=== PATIENT | male | born 1960 | race African-American/Black ===

== ENCOUNTER 2017-07-27 17:38 | Inpatient (IN) | payer OTHER ==
[~2017-07-27] VITALS: Ht 185.4 cm; Wt 83.0 kg
[~2017-07-27 17:38] MED LIST: ASPI-1158 PO; FOLI-43 PO; FURO20TA4 PO; LISI-604 PO; TAMS0.4C31 PO; TRAM50TA3 PO
[2017-07-27] MEDS ORDERED: SODIUM CHLORIDE 0.9% 1,000 ML IV ONE (18:08)
[2017-07-27] MEDS ORDERED: MORPHINE SULFATE 4 MG/ML CPJ (NOT FOR IM USE) IV STA (18:08)
[2017-07-27] MEDS ORDERED: ONDANSETRON HCL 4MG/2ML VIAL IV STA (18:08)
[2017-07-27] MEDS ORDERED: FAMOTIDINE 20MG TABLET PO STA (18:10)
[2017-07-27] MEDS ORDERED: MAGNESIUM/ALUMINUM HYDROXIDE/SIMETHICONE 30ML UDC PO STA (18:10)
[2017-07-27] MEDS ORDERED: NITROGLYCERIN 0.4MG TABLET SL SL PRN (18:15)
[2017-07-27] MEDS ORDERED: CLONIDINE 0.2MG TABLET PO ONE ×2 (18:15→23:15)
[2017-07-27] MEDS ORDERED: MORPHINE SULFATE 10 MG/ML CPJ IV NR (19:30)
[2017-07-27] MEDS ORDERED: HYDROMORPHONE HCL/PF 2MG/ML CPJ IV ONE (19:30)
[2017-07-27 19:35] LABS: BASOPHILS % 1.3 % (0.0-2.0); EOSINOPHILS % 0.8 % (0.0-5.0); HEMATOCRIT. 39.4 % (42.0-52.0); HEMOGLOBIN. 13.7 g/dL (14.0-18.0); LYMPHOCYTES % 26.9 % (20.0-50.0); MEAN CORPUSCULAR HEMOGLOBIN 34.9 pg (28.0-32.0); MEAN CORPUSCULAR VOLUME 100.5 fL (80.0-94.0); MEAN PLATELET VOLUME 6.8 fl (7.4-10.4); MONOCYTES % 10.1 % (2.0-8.0); NEUTROPHILS % 60.9 % (40.0-76.0); PLATELET 238 x1000/uL (130-400); RED BLOOD CELL COUNT 3.92 mill/uL (4.7-6.1); RED CELL DISTRIBUTION WIDTH 15.5 % (11.6-14.6)
[2017-07-27 19:42] LABS: PARTIAL THROMBOPLASTIN TIME 25.7 sec (23.4-31.0); PROTHROMBIN TIME 10.6 sec (9.4-11.6)
[2017-07-27 19:51] LABS: CARBON DIOXIDE 27 mEq/L (21-32); CHLORIDE 102 mEq/L (98-107); TROPONIN I 0.03 ng/mL (0.00-0.04)
[2017-07-27] MEDS ORDERED: ASPIRIN 325MG EC TABLET PO ONE (21:30)
[2017-07-27] MEDS ORDERED: POTASSIUM CHLORIDE 20MEQ TABLET SR PO ONE (21:30)
[2017-07-27 23:30] VITALS: BP 160/103
[2017-07-28 00:01] VITALS: BP 160/103
[2017-07-28] MEDS ORDERED: HYDROCODONE/ACETAMINOPHEN 5/325MG TABLET PO PRN (01:45)
[2017-07-28] MEDS ORDERED: TEMAZEPAM 15MG CAPSULE PO PRN (01:45)
[2017-07-28] MEDS ORDERED: ONDANSETRON HCL 4MG/2ML VIAL IV PRN (01:45)
[2017-07-28] MEDS ORDERED: CLONIDINE 0.1MG TABLET PO PRN (02:00)
[2017-07-28] MEDS ORDERED: TRAMADOL 50MG TABLET PO PRN (02:00)
[2017-07-28] MEDS: SODIUM CHLORIDE 0.9% 1,000 ML IV SCH (02:45)
[2017-07-28] MEDS: LISINOPRIL 20MG TABLET PO SCH ×4 (02:45→20:06)
[2017-07-28 04:00] VITALS: BP 141/95
[2017-07-28 07:01] LABS: BASOPHILS % 0.8 % (0.0-2.0); EOSINOPHILS % 0.9 % (0.0-5.0); HEMATOCRIT. 38.8 % (42.0-52.0); HEMOGLOBIN. 13.2 g/dL (14.0-18.0); LYMPHOCYTES % 30.8 % (20.0-50.0); MEAN CORPUSCULAR HEMOGLOBIN 34.7 pg (28.0-32.0); MEAN CORPUSCULAR VOLUME 101.8 fL (80.0-94.0); MEAN PLATELET VOLUME 7.4 fl (7.4-10.4); MONOCYTES % 10.9 % (2.0-8.0); NEUTROPHILS % 56.6 % (40.0-76.0); PLATELET 239 x1000/uL (130-400); RED BLOOD CELL COUNT 3.81 mill/uL (4.7-6.1); RED CELL DISTRIBUTION WIDTH 15.4 % (11.6-14.6)
[2017-07-28 07:37] LABS: CARBON DIOXIDE 30 mEq/L (21-32); CHLORIDE 100 mEq/L (98-107); CREATINE KINASE 221 IU/L (39-308); HDL CHOLESTEROL 83 mg/dL (40-59)
[2017-07-28 07:44] LABS: CREATINE KINASE MB FRACTION 1.8 ng/mL (0.5-3.6); LDL CHOLESTEROL 129 mg/dL (5-100); TROPONIN I 0.02 ng/mL (0.00-0.04)
[2017-07-28 08:00] VITALS: BP 155/93
[2017-07-28] MEDS: ASPIRIN 81MG EC TABLET PO SCH (08:56)
[2017-07-28] MEDS: FOLIC ACID 1MG TABLET PO SCH (08:56)
[2017-07-28] MEDS: FUROSEMIDE 20MG TABLET PO SCH (08:56)
[2017-07-28] MEDS ORDERED: INFLUENZA VIRUS VACCINE 0.5ML SYR IM ONE (10:00)
[2017-07-28 12:00] VITALS: BP 157/96
[2017-07-28] MEDS: OMEPRAZOLE 20MG CAPSULE EXTENDED RELEASE PO SCH (13:58)
[2017-07-28] MEDS: CARVEDILOL 6.25 MG TABLET PO SCH ×2 (13:59→20:07)
[2017-07-28] MEDS: AMLODIPINE 5MG TABLET PO SCH ×2 (13:59→20:08)
[2017-07-28 16:00] VITALS: BP 145/91
[2017-07-28 20:00] VITALS: BP 148/99
[2017-07-28] MEDS ORDERED: ATORVASTATIN CALCIUM 20MG TABLET PO SCH (21:00)
[2017-07-29] VITALS: BP 132/93
[2017-07-29] MEDS: SODIUM CHLORIDE 0.9% 1,000 ML IV SCH ×2 (03:43→04:04)
[2017-07-29 03:45] LABS: CLARITY URINE CLEAR (CLEAR); COLOR URINE YELLOW (YELLOW); GLUCOSE URINE NEGATIVE (NEGATIVE); KETONES URINE 1+ (NEGATIVE); LEUKOCYTE ESTERASE URINE NEGATIVE (NEGATIVE); NITRITE URINE NEGATIVE (NEGATIVE); OCCULT BLOOD URINE NEGATIVE (NEGATIVE); PROTEIN URINE NEGATIVE (NEGATIVE); SPECIFIC GRAVITY URINE 1.015 (1.005-1.030)
[2017-07-29 04:00] VITALS: BP 139/98
[2017-07-29 04:19] LABS: *AMPHETAMINES SCREEN URINE NEGATIVE (NEGATIVE); *BARBITURATES SCREEN URINE NEGATIVE (NEGATIVE); *BENZODIAZEPINES SCREEN URINE NEGATIVE (NEGATIVE); *COCAINE SCREEN URINE NEGATIVE (NEGATIVE); CANNABINOID URINE SCREEN PRESUMTIVE POSITIVE (NEGATIVE); METHADONE URINE SCREEN NEGATIVE (NEGATIVE); OPIATES URINE SCREEN PRESUMTIVE POSITIVE (NEGATIVE); PHENCYCLIDINE URINE SCREEN NEGATIVE (NEGATIVE)
[2017-07-29] MEDS: OMEPRAZOLE 20MG CAPSULE EXTENDED RELEASE PO SCH (06:10)
[2017-07-29] MEDS ORDERED: REGADENOSON 0.4 MG/5 ML IV SCH (07:45)
[2017-07-29] MEDS: FOLIC ACID 1MG TABLET PO SCH (08:25)
[2017-07-29] MEDS: CARVEDILOL 6.25 MG TABLET PO SCH (08:26)
[2017-07-29] MEDS: LISINOPRIL 20MG TABLET PO SCH ×2 (08:26→08:56)
[2017-07-29] MEDS: FUROSEMIDE 20MG TABLET PO SCH (08:26)
[2017-07-29] MEDS: AMLODIPINE 5MG TABLET PO SCH (08:27)
[2017-07-29] MEDS: ASPIRIN 81MG EC TABLET PO SCH (08:27)
[2017-07-29] MEDS ORDERED: REGADENOSON 0.4 MG/5 ML IV ONE (10:16)
[2017-07-29 13:53] VITALS: BP 132/90
== END 2017-07-29 17:00 | disposition home or self-care (01) | DRG 203 ==
LOC: ER 17:47 → 8WST 21:53 → EDBEDREQ 21:56 → EDBEDREQTM 21:56 → ENRESERV 22:08 → 8WST 07-28 00:10
PROVIDERS: ADMIT Internal Medicine; ATTEND Internal Medicine
DX: M94.0 Chondrocostal junction syndrome [Tietze] (principal); I42.9 Cardiomyopathy, unspecified; I11.0 Hypertensive heart disease with heart failure; I50.9 Heart failure, unspecified; K29.20 Alcoholic gastritis without bleeding; R07.89 Other chest pain; F10.288 Alcohol dependence with other alcohol-induced disorder; E87.6 Hypokalemia; D64.9 Anemia, unspecified; E78.5 Hyperlipidemia, unspecified; F17.210 Nicotine dependence, cigarettes, uncomplicated; R74.0 Nonspecific elevation of levels of transaminase and lactic acid dehydrogenase [LDH]; Z79.82 Long term (current) use of aspirin; Z79.899 Other long term (current) drug therapy; Z82.49 Family history of ischemic heart disease and other diseases of the circulatory system; Z90.49 Acquired absence of other specified parts of digestive tract
CPT/HCPCS: 36415; 70450; 71010; 74176; 78452; 80048; 80053; 80061; 80305; 81003; 82550; 82553; 83036; 83690; 84443; 84484; 85025; 85610; 85730; 86850; 86900; 90686; 93005; 93017; 96361; 96374; 96375; 99285; A9500; J1170; J2270; J2405; J2785; J7030

== ENCOUNTER 2018-11-07 02:58 | Inpatient (IN) | payer OTHER ==
[~2018-11-07] VITALS: Ht 185.4 cm; Wt 80.7 kg
[2018-11-07] MEDS ORDERED: FUROSEMIDE 40MG/4ML VIAL IV ONE (03:15)
[2018-11-07] MEDS ORDERED: ASPIRIN 81MG TABLET PO ONE (03:15)
[2018-11-07 03:48] LABS: BASOPHILS % 0.9 % (0.0-2.0); EOSINOPHILS % 2.2 % (0.0-5.0); HEMATOCRIT. 46.8 % (42.0-52.0); HEMOGLOBIN. 15.6 g/dL (14.0-18.0); LYMPHOCYTES % 42.4 % (20.0-50.0); MEAN CORPUSCULAR HEMOGLOBIN 33.5 pg (28.0-32.0); MEAN CORPUSCULAR VOLUME 100.6 fL (80.0-94.0); MONOCYTES % 7.3 % (2.0-8.0); NEUTROPHILS % 47.2 % (40.0-76.0); PLATELET 354 x1000/uL (130-400); RED BLOOD CELL COUNT 4.65 mill/uL (4.7-6.1); RED CELL DISTRIBUTION WIDTH 14.8 % (11.6-14.6)
[2018-11-07 03:51] LABS: CHLORIDE 111 mEq/L (98-107)
[2018-11-07 03:54] LABS: PARTIAL THROMBOPLASTIN TIME 29.9 sec (23.4-31.0); PROTHROMBIN TIME 9.7 sec (9.1-11.1)
[2018-11-07 03:55] LABS: ETHANOL BLOOD 185 mg/dL
[2018-11-07] MEDS ORDERED: LEVOFLOXACIN 500MG PREMIX 100 ML IV ONE (04:00)
[2018-11-07] MEDS ORDERED: ACETAMINOPHEN 325MG TABLET PO ONE (04:30)
[2018-11-07 06:20] LABS: *AMPHETAMINES SCREEN URINE NEGATIVE (NEGATIVE); *BARBITURATES SCREEN URINE NEGATIVE (NEGATIVE); *BENZODIAZEPINES SCREEN URINE NEGATIVE (NEGATIVE); *COCAINE SCREEN URINE NEGATIVE (NEGATIVE); METHADONE URINE SCREEN NEGATIVE (NEGATIVE); OPIATES URINE SCREEN NEGATIVE (NEGATIVE)
[2018-11-07 06:21] LABS: CANNABINOID URINE SCREEN NEGATIVE (NEGATIVE); PHENCYCLIDINE URINE SCREEN NEGATIVE (NEGATIVE)
[2018-11-07] MEDS ORDERED: ALPRAZOLAM 0.5 MG TABLET PO NR (11:45)
[2018-11-07 12:35] LABS: BASOPHILS % 1.2 % (0.0-2.0); EOSINOPHILS % 1.1 % (0.0-5.0); HEMATOCRIT. 43.7 % (42.0-52.0); HEMOGLOBIN. 14.6 g/dL (14.0-18.0); LYMPHOCYTES % 27.4 % (20.0-50.0); MEAN CORPUSCULAR HEMOGLOBIN 33.4 pg (28.0-32.0); MEAN CORPUSCULAR VOLUME 100.2 fL (80.0-94.0); MONOCYTES % 8.1 % (2.0-8.0); NEUTROPHILS % 62.2 % (40.0-76.0); PLATELET 335 x1000/uL (130-400); RED BLOOD CELL COUNT 4.36 mill/uL (4.7-6.1); RED CELL DISTRIBUTION WIDTH 14.1 % (11.6-14.6)
[2018-11-07 12:37] LABS: CHLORIDE 104 mEq/L (98-107)
[2018-11-07 12:45] LABS: CREATINE KINASE 125 IU/L (39-308)
[2018-11-07 12:47] LABS: CREATINE KINASE MB FRACTION 2.3 ng/mL (0.5-3.6)
[2018-11-07] MEDS: LOSARTAN POTASSIUM 50 MG TABLET PO SCH (18:01)
[2018-11-07] MEDS: FUROSEMIDE 40MG/4ML VIAL IVP SCH (18:01)
[2018-11-07 19:14] VITALS: BP 164/118
[2018-11-07] MEDS ORDERED: INFLUENZA VIRUS VACCINE(AFLURIA) 0.5ML SYR IM ONE (19:15)
[2018-11-07 20:00] VITALS: BP 159/110
[2018-11-07] MEDS: AMLODIPINE 5MG TABLET PO SCH (21:21)
[2018-11-07] MEDS: ZOLPIDEM TARTRATE 5MG TABLET PO PRN (21:21)
[2018-11-07] MEDS: CARVEDILOL 3.125 MG TABLET PO SCH (21:21)
[2018-11-07] MEDS ORDERED: AMLO10TA80 PO (22:19)
[2018-11-07] MEDS ORDERED: THIAMINE HCL 100MG TABLET PO NR (23:15)
[2018-11-08] VITALS: BP 148/104
[2018-11-08] MEDS ORDERED: INFLUENZA VIRUS VACCINE(AFLURIA) 0.5ML SYR IM ONE
[2018-11-08] MEDS ORDERED: FOLIC ACID 1 MG, MVI, ADULT NO.1 10 ML in DEXTROSE 5% WATER 1,000 ML IV ONE ×3
[2018-11-08 04:00] VITALS: BP 154/106
[2018-11-08] MEDS: FUROSEMIDE 40MG/4ML VIAL IVP SCH ×2 (06:30→18:13)
[2018-11-08 07:45] LABS: BASOPHILS % 1.2 % (0.0-2.0); EOSINOPHILS % 1.7 % (0.0-5.0); HEMOGLOBIN. 14.6 g/dL (14.0-18.0); LYMPHOCYTES % 31.1 % (20.0-50.0); MEAN CORPUSCULAR HEMOGLOBIN 33.7 pg (28.0-32.0); MEAN CORPUSCULAR VOLUME 99.1 fL (80.0-94.0); MEAN PLATELET VOLUME 7.5 fl (7.4-10.4); MONOCYTES % 10.3 % (2.0-8.0); NEUTROPHILS % 55.7 % (40.0-76.0); PLATELET 329 x1000/uL (130-400); RED BLOOD CELL COUNT 4.33 mill/uL (4.7-6.1); RED CELL DISTRIBUTION WIDTH 14.1 % (11.6-14.6)
[2018-11-08 07:59] LABS: CHLORIDE 100 mEq/L (98-107)
[2018-11-08 08:00] VITALS: BP 160/121
[2018-11-08] MEDS: CARVEDILOL 3.125 MG TABLET PO SCH (08:56)
[2018-11-08] MEDS: LOSARTAN POTASSIUM 50 MG TABLET PO SCH ×2 (08:56→18:14)
[2018-11-08] MEDS: AMLODIPINE 5MG TABLET PO SCH ×2 (08:56→21:36)
[2018-11-08] MEDS ORDERED: PNEUMOCOCCAL 23-VAL P-SAC VAC 0.5 ML IM ONE (10:00)
[2018-11-08 12:00] VITALS: BP 153/111
[2018-11-08] MEDS: ISOSORB DINIT/HYDRALAZINE HCL 20/37.5MG TABLET PO SCH ×2 (14:40→21:35)
[2018-11-08 16:00] VITALS: BP 120/89
[2018-11-08 20:00] VITALS: BP 128/98
[2018-11-08] MEDS ORDERED: POTASSIUM CHLORIDE 20MEQ TABLET SR PO NR (21:15)
[2018-11-08] MEDS: ZOLPIDEM TARTRATE 5MG TABLET PO PRN (21:36)
[2018-11-08] MEDS: CARVEDILOL 6.25 MG TABLET PO SCH (21:36)
[2018-11-08] MEDS: HYDROCODONE/ACETAMINOPHEN 5/325MG TABLET PO PRN (23:11)
[2018-11-09] VITALS (7 sets, daily range): BP systolic 73–141; BP diastolic 43–91
[2018-11-09] MEDS: ISOSORB DINIT/HYDRALAZINE HCL 20/37.5MG TABLET PO SCH (06:00)
[2018-11-09 06:22] LABS: BASOPHILS % 0.7 % (0.0-2.0); EOSINOPHILS % 0.7 % (0.0-5.0); HEMATOCRIT. 41.7 % (42.0-52.0); HEMOGLOBIN. 14.3 g/dL (14.0-18.0); LYMPHOCYTES % 21.5 % (20.0-50.0); MEAN CORPUSCULAR VOLUME 99.1 fL (80.0-94.0); MEAN PLATELET VOLUME 7.3 fl (7.4-10.4); MONOCYTES % 9.8 % (2.0-8.0); NEUTROPHILS % 67.3 % (40.0-76.0); PLATELET 322 x1000/uL (130-400); RED CELL DISTRIBUTION WIDTH 13.9 % (11.6-14.6)
[2018-11-09] MEDS: FUROSEMIDE 40MG/4ML VIAL IVP SCH (07:15)
[2018-11-09] MEDS: AMLODIPINE 5MG TABLET PO SCH ×3 (09:00→20:11)
[2018-11-09] MEDS: LOSARTAN POTASSIUM 50 MG TABLET PO SCH (09:00)
[2018-11-09] MEDS: CARVEDILOL 6.25 MG TABLET PO SCH (09:00)
[2018-11-09] MEDS: POTASSIUM CHLORIDE 10MEQ TABLET SR PO SCH ×2 (09:55→17:50)
[2018-11-09] MEDS ORDERED: SODIUM CHLORIDE 0.9% 1,000 ML IV ONE (15:30)
[2018-11-09] MEDS: LOSARTAN POTASSIUM 25 MG TABLET PO SCH (17:50)
[2018-11-09] MEDS: CARVEDILOL 3.125 MG TABLET PO SCH (20:11)
[2018-11-09] MEDS: ZOLPIDEM TARTRATE 5MG TABLET PO PRN (22:20)
[2018-11-10] VITALS: BP 116/84
[2018-11-10 04:00] VITALS: BP 125/88
[2018-11-10] MEDS: HYDROCODONE/ACETAMINOPHEN 5/325MG TABLET PO PRN (06:41)
[2018-11-10 06:42] LABS: BASOPHILS % 0.9 % (0.0-2.0); EOSINOPHILS % 1.7 % (0.0-5.0); HEMATOCRIT. 43.2 % (42.0-52.0); HEMOGLOBIN. 14.5 g/dL (14.0-18.0); LYMPHOCYTES % 32.7 % (20.0-50.0); MEAN CORPUSCULAR HEMOGLOBIN 33.6 pg (28.0-32.0); MEAN CORPUSCULAR VOLUME 99.8 fL (80.0-94.0); MEAN PLATELET VOLUME 7.4 fl (7.4-10.4); MONOCYTES % 12.4 % (2.0-8.0); NEUTROPHILS % 52.3 % (40.0-76.0); PLATELET 313 x1000/uL (130-400); RED BLOOD CELL COUNT 4.33 mill/uL (4.7-6.1); RED CELL DISTRIBUTION WIDTH 13.7 % (11.6-14.6)
[2018-11-10 07:56] LABS: CHLORIDE 102 mEq/L (98-107)
[2018-11-10 08:05] VITALS: BP 125/84
[2018-11-10] MEDS: CARVEDILOL 3.125 MG TABLET PO SCH (09:02)
[2018-11-10] MEDS: LOSARTAN POTASSIUM 25 MG TABLET PO SCH (09:02)
[2018-11-10] MEDS: POTASSIUM CHLORIDE 10MEQ TABLET SR PO SCH (09:03)
[2018-11-10] MEDS: AMLODIPINE 5MG TABLET PO SCH (09:03)
[2018-11-10 12:00] VITALS: BP 128/93
[2018-11-10] MEDS ORDERED: CARV3.1242 MT (13:58)
[2018-11-10] MEDS ORDERED: LOSA25TA3 PO (13:58)
[2018-11-10] MEDS ORDERED: POTA10CA42 PO (13:59)
[2018-11-10] MEDS ORDERED: FURO-151 PO (13:59)
[2018-11-10] MEDS ORDERED: FOLI-43 MT (14:00)
[2018-11-10] MEDS ORDERED: THIA100T13 MT (14:00)
[2018-11-10 14:02] VITALS: BP 128/93
[2018-11-10 16:00] VITALS: BP 114/63
== END 2018-11-10 14:45 | disposition home or self-care (01) | DRG 203 ==
LOC: ER 02:58 → 5WST 04:33 → EDBEDREQ 04:35 → EDBEDREQTM 04:35 → ENRESERV 15:20
PROVIDERS: ADMIT Internal Medicine; ATTEND Internal Medicine
DX: M94.0 Chondrocostal junction syndrome [Tietze] (principal); I50.23 Acute on chronic systolic (congestive) heart failure; E87.1 Hypo-osmolality and hyponatremia; I42.9 Cardiomyopathy, unspecified; I11.0 Hypertensive heart disease with heart failure; E87.6 Hypokalemia; F17.210 Nicotine dependence, cigarettes, uncomplicated; F10.229 Alcohol dependence with intoxication, unspecified; Z82.49 Family history of ischemic heart disease and other diseases of the circulatory system; Z91.14 Patient's other noncompliance with medication regimen
CPT/HCPCS: 36415; 71045; 80048; 80305; 82550; 82553; 83605; 83735; 83880; 84484; 90686; 90732; 93005; 93306; 96365; 96375; 99285; J1940; J1956; J3490; J7070

== ENCOUNTER 2019-03-20 06:46 | Emergency (ER) | payer OTHER ==
[~2019-03-20] VITALS: Ht 170.2 cm; Wt 82.0 kg
[~2019-03-20 06:46] MED LIST changes: +AMLO10TA80 PO; -ASPI-1158 PO; +CARV3.1242 MT; +FOLI-43 MT; -FOLI-43 PO; +FURO-151 PO; -FURO20TA4 PO; -LISI-604 PO; +LOSA25TA3 PO; +POTA10CA42 PO; -TAMS0.4C31 PO; +THIA100T13 MT; -TRAM50TA3 PO
[2019-03-20] MEDS ORDERED: SODIUM CHLORIDE 0.9% 1,000 ML IV ONE (07:08)
[2019-03-20] MEDS ORDERED: ONDANSETRON HCL 4MG/2ML INJ IV STA (07:08)
[2019-03-20 07:23] LABS: BASOPHILS % 1.1 % (0.0-2.0); EOSINOPHILS % 2.5 % (0.0-5.0); HEMATOCRIT. 39.9 % (42.0-52.0); HEMOGLOBIN. 13.6 g/dL (14.0-18.0); LYMPHOCYTES % 18.8 % (20.0-50.0); MEAN CORPUSCULAR HEMOGLOBIN 33.1 pg (28.0-32.0); MEAN CORPUSCULAR VOLUME 96.9 fL (80.0-94.0); MEAN PLATELET VOLUME 6.4 fl (7.4-10.4); NEUTROPHILS % 69.6 % (40.0-76.0); PLATELET 317 x1000/uL (130-400); RED BLOOD CELL COUNT 4.11 mill/uL (4.7-6.1); RED CELL DISTRIBUTION WIDTH 14.2 % (11.6-14.6)
[2019-03-20 07:29] LABS: CHLORIDE 107 mEq/L (98-107)
[2019-03-20 07:34] LABS: ETHANOL BLOOD < 10 mg/dL
[2019-03-20 09:30] VITALS: BP 158/101
== END 2019-03-20 10:48 | disposition home or self-care (01) ==
LOC: ER 06:46
DX: R20.2 Paresthesia of skin (principal); I10 Essential (primary) hypertension; Z90.89 Acquired absence of other organs; Z79.899 Other long term (current) drug therapy; Z91.018 Allergy to other foods
CPT/HCPCS: 36415; 71045; 80053; 80320; 83690; 85025; 93005; 96361; 96374; 99284; J2405; J7030; Z7610; G0480

== ENCOUNTER 2020-02-02 12:57 | Emergency (ER) | payer OTHER ==
[~2020-02-02] VITALS: Ht 188 cm; Wt 93.0 kg
[2020-02-02] MEDS ORDERED: nitro (13:05)
[2020-02-02] MEDS ORDERED: SODIUM CHLORIDE 0.9% 1,000 ML IV ONE (13:24)
[2020-02-02] MEDS ORDERED: ONDANSETRON HCL 4MG/2ML INJ IV STA (13:24)
[2020-02-02] MEDS ORDERED: MORPHINE SULFATE 4 MG/ML CPJ (NOT FOR IM USE) IV STA (13:24)
[2020-02-02] MEDS ORDERED: KETOROLAC 30MG/ML VIAL IV ONE (13:30)
[2020-02-02 13:51] LABS: BASOPHILS % 0.5 % (0.0-2.0); EOSINOPHILS % 0.4 % (0.0-5.0); HEMATOCRIT. 39.7 % (42.0-52.0); HEMOGLOBIN. 13.8 g/dL (14.0-18.0); LYMPHOCYTES % 24.7 % (20.0-50.0); MEAN CORPUSCULAR HEMOGLOBIN 35.2 pg (28.0-32.0); MEAN CORPUSCULAR VOLUME 101.1 fL (80.0-94.0); MEAN PLATELET VOLUME 6.7 fl (7.4-10.4); MONOCYTES % 9.3 % (2.0-8.0); NEUTROPHILS % 65.1 % (40.0-76.0); PLATELET 272 x1000/uL (130-400); RED BLOOD CELL COUNT 3.92 mill/uL (4.7-6.1); RED CELL DISTRIBUTION WIDTH 13.7 % (11.6-14.6)
[2020-02-02 13:57] LABS: CHLORIDE 104 mEq/L (98-107)
[2020-02-02 13:58] LABS: INR 0.9
[2020-02-02 15:39] LABS: CLARITY URINE CLEAR (CLEAR); COLOR URINE YELLOW (YELLOW); KETONES URINE NEGATIVE (NEGATIVE); LEUKOCYTE ESTERASE URINE TRACE (NEGATIVE); NITRITE URINE NEGATIVE (NEGATIVE); OCCULT BLOOD URINE NEGATIVE (NEGATIVE); PROTEIN URINE 1+ (NEGATIVE); SPECIFIC GRAVITY URINE 1.021 (1.005-1.030)
[2020-02-02 16:15] VITALS: BP 128/77
== END 2020-02-02 16:21 | disposition home or self-care (01) ==
LOC: ER 12:57
DX: N20.0 Calculus of kidney (principal); N39.0 Urinary tract infection, site not specified; I11.9 Hypertensive heart disease without heart failure; N40.0 Benign prostatic hyperplasia without lower urinary tract symptoms; Z86.73 Personal history of transient ischemic attack (TIA), and cerebral infarction without residual deficits; Z98.61 Coronary angioplasty status; Z90.49 Acquired absence of other specified parts of digestive tract; Z91.018 Allergy to other foods
CPT/HCPCS: 36415; 74176; 80053; 81003; 83690; 85025; 85610; 87086; 96374; 96375; 99284; J1885; J2270; J2405; J7030

== ENCOUNTER 2020-05-27 21:18 | Inpatient (IN) | payer MEDICAID, OTHER ==
[~2020-05-27] VITALS: Ht 170.2 cm; Wt 67.6 kg
[~2020-05-27 21:18] MED LIST changes: +nitro
[2020-05-27] MEDS ORDERED: SODIUM CHLORIDE 0.9% 1,000 ML IV ONE (22:12)
[2020-05-27] MEDS ORDERED: ACETAMINOPHEN 325MG TABLET PO STA (22:12)
[2020-05-27] MEDS ORDERED: PIPERACILLIN/TAZ 3.375G PREMIX 50 ML IV ONE (22:15)
[2020-05-27] MEDS ORDERED: NITROGLYCERIN OINT 1GM/INCH UDPKT TD ONE (22:15)
[2020-05-27] MEDS ORDERED: ASPIRIN 325MG EC TABLET PO ONE (22:15)
[2020-05-27 23:00] LABS: BASOPHILS % 1.4 % (0.0-2.0); EOSINOPHILS % 1.7 % (0.0-5.0); HEMATOCRIT. 40.8 % (42.0-52.0); HEMOGLOBIN. 14.4 g/dL (14.0-18.0); LYMPHOCYTES % 38.6 % (20.0-50.0); MEAN CORPUSCULAR HEMOGLOBIN 36.2 pg (28.0-32.0); MEAN CORPUSCULAR VOLUME 102.3 fL (80.0-94.0); MEAN PLATELET VOLUME 7.2 fl (7.4-10.4); MONOCYTES % 9.1 % (2.0-8.0); NEUTROPHILS % 49.2 % (40.0-76.0); PLATELET 316 x1000/uL (130-400); RED BLOOD CELL COUNT 3.99 mill/uL (4.7-6.1); RED CELL DISTRIBUTION WIDTH 14.5 % (11.6-14.6)
[2020-05-27 23:10] LABS: INR 0.9; PROTHROMBIN TIME 9.9 sec (9.6-11.0)
[2020-05-27 23:32] LABS: CLARITY URINE CLEAR (CLEAR); COLOR URINE DK YELLOW (YELLOW); KETONES URINE TRACE (NEGATIVE); LEUKOCYTE ESTERASE URINE NEGATIVE (NEGATIVE); NITRITE URINE NEGATIVE (NEGATIVE); OCCULT BLOOD URINE NEGATIVE (NEGATIVE); PROTEIN URINE 1+ (NEGATIVE); SPECIFIC GRAVITY URINE 1.028 (1.005-1.030)
[2020-05-27 23:33] LABS: CHLORIDE 104 mEq/L (98-107)
[2020-05-27 23:39] LABS: C REACTIVE PROTEIN QUANT 7.1 mg/L (0.0-3.0)
[2020-05-28] MEDS ORDERED: HYDROCODONE/ACETAMINOPHEN 5/325MG TABLET PO PRN (08:30)
[2020-05-28] MEDS ORDERED: ONDANSETRON HCL 4MG/2ML INJ IV PRN (08:30)
[2020-05-28] MEDS ORDERED: ACETAMINOPHEN 325MG TABLET PO PRN ×2 (08:30)
[2020-05-28] MEDS ORDERED: CLONIDINE 0.1MG TABLET PO PRN (08:30)
[2020-05-28] MEDS ORDERED: LORAZEPAM 0.5MG TABLET PO PRN (08:30)
[2020-05-28] MEDS ORDERED: DOCUSATE SODIUM 100MG CAPSULE PO PRN (08:30)
[2020-05-28 10:20] LABS: *AMPHETAMINES SCREEN URINE NEGATIVE (NEGATIVE); *BARBITURATES SCREEN URINE NEGATIVE (NEGATIVE)
[2020-05-28 10:21] LABS: *BENZODIAZEPINES SCREEN URINE NEGATIVE (NEGATIVE); *COCAINE SCREEN URINE NEGATIVE (NEGATIVE); CANNABINOID URINE SCREEN PRESUMTIVE POSITIVE (NEGATIVE); METHADONE URINE SCREEN NEGATIVE (NEGATIVE); OPIATES URINE SCREEN NEGATIVE (NEGATIVE); PHENCYCLIDINE URINE SCREEN NEGATIVE (NEGATIVE)
[2020-05-28] MEDS: AMLODIPINE 5MG TABLET PO SCH (13:30)
[2020-05-28] MEDS: CLOPIDOGREL 75MG TABLET PO SCH (13:30)
[2020-05-28] MEDS: CARVEDILOL 6.25 MG TABLET PO SCH ×2 (13:30→21:59)
[2020-05-29 05:27] LABS: BASOPHILS % 1.2 % (0.0-2.0); EOSINOPHILS % 2.6 % (0.0-5.0); HEMATOCRIT. 34.8 % (42.0-52.0); HEMOGLOBIN. 12.1 g/dL (14.0-18.0); LYMPHOCYTES % 32.4 % (20.0-50.0); MEAN CORPUSCULAR HEMOGLOBIN 35.9 pg (28.0-32.0); MEAN CORPUSCULAR VOLUME 102.9 fL (80.0-94.0); MEAN PLATELET VOLUME 6.7 fl (7.4-10.4); MONOCYTES % 12.4 % (2.0-8.0); NEUTROPHILS % 51.4 % (40.0-76.0); PLATELET 247 x1000/uL (130-400); RED BLOOD CELL COUNT 3.38 mill/uL (4.7-6.1); RED CELL DISTRIBUTION WIDTH 14.3 % (11.6-14.6)
[2020-05-29 05:37] LABS: CHLORIDE 104 mEq/L (98-107)
[2020-05-29] MEDS ORDERED: ASPIRIN 81MG EC TABLET PO SCH (09:00)
[2020-05-29 10:00] VITALS: BP 145/99
[2020-05-29] MEDS ORDERED: FUROSEMIDE 40MG TABLET PO SCH (10:30)
[2020-05-29] MEDS: AMLODIPINE 5MG TABLET PO SCH (11:01)
[2020-05-29] MEDS: CLOPIDOGREL 75MG TABLET PO SCH (11:01)
[2020-05-29] MEDS: CARVEDILOL 6.25 MG TABLET PO SCH (11:02)
[2020-05-29 12:00] VITALS: BP 130/83
[2020-05-29] MEDS ORDERED: CLOP75TA15 PO (14:36)
[2020-05-29] MEDS ORDERED: COR6 PO (14:36)
[2020-05-29] MEDS ORDERED: ASPI-1158 PO (14:36)
[2020-05-29] MEDS ORDERED: AMLO5TAB88 PO (14:36)
[2020-05-29] MEDS ORDERED: ATOR20TA65 MT (14:39)
[2020-05-29 16:02] VITALS: BP 131/85
[2020-05-29 16:31] VITALS: BP 131/85
[2020-05-30] MEDS ORDERED: FUROSEMIDE 40MG TABLET PO SCH (09:00)
[2020-05-30] MEDS ORDERED: POTASSIUM CHLORIDE 10MEQ TABLET SR PO SCH (09:00)
== END 2020-05-29 17:05 | disposition home or self-care (01) | DRG 720 ==
LOC: ER 21:18 → MICUSO 05-28 00:45 → EDBEDREQTM 05-28 00:48 → EDBEDREQ 05-28 00:48 → EDBEDREQDT 05-28 00:48 → 6WST 05-29 08:12
PROVIDERS: ADMIT Internal Medicine; ATTEND Internal Medicine
DX: A41.9 Sepsis, unspecified organism (principal); I25.10 Atherosclerotic heart disease of native coronary artery without angina pectoris; Z20.828 Contact with and (suspected) exposure to other viral communicable diseases; F17.200 Nicotine dependence, unspecified, uncomplicated; E87.2 Acidosis; F10.10 Alcohol abuse, uncomplicated; Y90.9 Presence of alcohol in blood, level not specified; D72.821 Monocytosis (symptomatic); R74.0 Nonspecific elevation of levels of transaminase and lactic acid dehydrogenase [LDH]; I34.0 Nonrheumatic mitral (valve) insufficiency; N20.0 Calculus of kidney; I25.5 Ischemic cardiomyopathy; E87.1 Hypo-osmolality and hyponatremia; E87.6 Hypokalemia; B34.9 Viral infection, unspecified; I50.20 Unspecified systolic (congestive) heart failure; I11.0 Hypertensive heart disease with heart failure; R34 Anuria and oliguria; I25.2 Old myocardial infarction; Z91.018 Allergy to other foods; Z79.899 Other long term (current) drug therapy; Z79.84 Long term (current) use of oral hypoglycemic drugs; Z86.73 Personal history of transient ischemic attack (TIA), and cerebral infarction without residual deficits; Z90.49 Acquired absence of other specified parts of digestive tract; Z87.442 Personal history of urinary calculi; Z95.5 Presence of coronary angioplasty implant and graft; Z91.19 Patient's noncompliance with other medical treatment and regimen; Z91.14 Patient's other noncompliance with medication regimen; M94.0 Chondrocostal junction syndrome [Tietze]; J44.1 Chronic obstructive pulmonary disease with (acute) exacerbation
CPT/HCPCS: 36415; 71045; 74176; 80048; 80053; 80061; 80076; 80305; 81003; 82728; 83036; 83605; 83880; 84145; 84443; 84484; 85025; 85379; 86140; 87635; 93005; 93306; 96365; 96366; 96375; 99291; J2405; J2543; J7030; U0003-CS

== ENCOUNTER 2020-08-30 03:45 | Emergency (ER) | payer OTHER ==
[~2020-08-30] VITALS: Ht 190.5 cm; Wt 83.0 kg
[~2020-08-30 03:45] MED LIST changes: -AMLO10TA80 PO; +AMLO5TAB88 PO; +ASPI-1158 PO; +ATOR20TA65 MT; -CARV3.1242 MT; +CLOP75TA15 PO; +COR6 PO; -LOSA25TA3 PO
[2020-08-30] MEDS ORDERED: ONDANSETRON HCL 4MG/2ML INJ IV STA (04:44)
[2020-08-30] MEDS ORDERED: MORPHINE SULFATE 4 MG/ML CPJ (NOT FOR IM USE) IV STA (04:44)
[2020-08-30 05:21] LABS: BASOPHILS % 1.1 % (0.0-2.0); EOSINOPHILS % 0.3 % (0.0-5.0); HEMATOCRIT. 37.4 % (42.0-52.0); HEMOGLOBIN. 12.6 g/dL (14.0-18.0); LYMPHOCYTES % 22.6 % (20.0-50.0); MEAN CORPUSCULAR HEMOGLOBIN 35.3 pg (28.0-32.0); MEAN CORPUSCULAR VOLUME 104.4 fL (80.0-94.0); MEAN PLATELET VOLUME 6.9 fl (7.4-10.4); MONOCYTES % 5.3 % (2.0-8.0); NEUTROPHILS % 70.7 % (40.0-76.0); PLATELET 336 x1000/uL (130-400); RED BLOOD CELL COUNT 3.58 mill/uL (4.7-6.1)
[2020-08-30 05:28] LABS: CHLORIDE 107 mEq/L (98-107)
[2020-08-30 05:31] LABS: INR 0.9
[2020-08-30 05:37] LABS: ETHANOL BLOOD 221 mg/dL
[2020-08-30 07:20] LABS: CLARITY URINE CLEAR (CLEAR); COLOR URINE YELLOW (YELLOW); KETONES URINE NEGATIVE (NEGATIVE); LEUKOCYTE ESTERASE URINE NEGATIVE (NEGATIVE); NITRITE URINE NEGATIVE (NEGATIVE); OCCULT BLOOD URINE 2+ (NEGATIVE); PROTEIN URINE TRACE (NEGATIVE); SPECIFIC GRAVITY URINE 1.012 (1.005-1.030); UROBILINOGEN URINE 0.2 E.U./dL (0.2-1.0)
[2020-08-30 09:57] VITALS: BP 149/87
== END 2020-08-30 10:00 | disposition home or self-care (01) ==
LOC: ER 03:45
DX: T51.91XA Toxic effect of unspecified alcohol, accidental (unintentional), initial encounter (principal); Y92.9 Unspecified place or not applicable; S09.8XXA Other specified injuries of head, initial encounter; S50.12XA Contusion of left forearm, initial encounter; I10 Essential (primary) hypertension; F17.200 Nicotine dependence, unspecified, uncomplicated; W17.89XA Other fall from one level to another, initial encounter; Y93.9 Activity, unspecified; Z71.6 Tobacco abuse counseling; Z79.82 Long term (current) use of aspirin; Z91.018 Allergy to other foods; Z91.048 Other nonmedicinal substance allergy status; Z98.890 Other specified postprocedural states
CPT/HCPCS: 36415; 70450; 71045; 72170; 73060; 73090; 73130; 80053; 80320; 81003; 85025; 85610; 86850; 86900; 86901; 93005; 96374; 96375; 99285; 99406; J2270; J2405; G0480

== ENCOUNTER 2020-11-18 14:41 | Emergency (ER) | payer OTHER ==
[~2020-11-18] VITALS: Ht 172.7 cm; Wt 68.0 kg
[~2020-11-18 14:41] MED LIST changes: -ASPI-1158 PO; +ASPI-1406 PO
[2020-11-18] MEDS ORDERED: SODIUM CHLORIDE 0.9% 1,000 ML IV ONE (15:15)
[2020-11-18 15:21] LABS: BASOPHILS % 0.7 % (0.0-2.0); EOSINOPHILS % 0.7 % (0.0-5.0); HEMATOCRIT. 35.1 % (42.0-52.0); HEMOGLOBIN. 12.1 g/dL (14.0-18.0); LYMPHOCYTES % 28.2 % (20.0-50.0); MEAN CORPUSCULAR HEMOGLOBIN 34.4 pg (28.0-32.0); MEAN CORPUSCULAR VOLUME 99.7 fL (80.0-94.0); MEAN PLATELET VOLUME 7.4 fl (7.4-10.4); MONOCYTES % 9.7 % (2.0-8.0); NEUTROPHILS % 60.7 % (40.0-76.0); PLATELET 221 x1000/uL (130-400); RED BLOOD CELL COUNT 3.52 mill/uL (4.7-6.1); RED CELL DISTRIBUTION WIDTH 13.3 % (11.6-14.6)
[2020-11-18 15:29] LABS: CHLORIDE 100 mEq/L (98-107)
[2020-11-18 15:31] LABS: INR 0.9; PARTIAL THROMBOPLASTIN TIME 27.9 sec (23.4-31.0)
[2020-11-18 21:00] VITALS: BP 132/98
== END 2020-11-18 22:57 | disposition short-term general hospital (02) ==
LOC: ER 14:48
DX: R55 Syncope and collapse (principal); R53.1 Weakness; I10 Essential (primary) hypertension; Z86.73 Personal history of transient ischemic attack (TIA), and cerebral infarction without residual deficits; F17.290 Nicotine dependence, other tobacco product, uncomplicated; Z79.899 Other long term (current) drug therapy
CPT/HCPCS: 36415; 71045; 80053; 83880; 84484; 85025; 85610; 85730; 93005; 96360; 99285; J7030

== ENCOUNTER 2020-12-07 20:31 | Emergency (ER) | payer OTHER ==
[~2020-12-07] VITALS: Ht 172.7 cm; Wt 74.0 kg
[2020-12-07] MEDS ORDERED: ASPIRIN 81MG TABLET PO ONE (23:00)
[2020-12-07] MEDS ORDERED: NITROGLYCERIN 0.4MG TABLET SL SL PRN (23:00)
[2020-12-07] MEDS ORDERED: MORPHINE SULFATE 4 MG/ML CPJ (NOT FOR IM USE) IV NR (23:00)
[2020-12-07] MEDS ORDERED: ONDANSETRON HCL 4MG/2ML INJ IV NR (23:00)
[2020-12-07 23:36] LABS: BASOPHILS % 0.9 % (0.0-2.0); EOSINOPHILS % 1.1 % (0.0-5.0); HEMATOCRIT. 41.9 % (42.0-52.0); HEMOGLOBIN. 14.4 g/dL (14.0-18.0); MEAN CORPUSCULAR HEMOGLOBIN 33.2 pg (28.0-32.0); MEAN CORPUSCULAR VOLUME 96.6 fL (80.0-94.0); MEAN PLATELET VOLUME 6.9 fl (7.4-10.4); MONOCYTES % 7.6 % (2.0-8.0); NEUTROPHILS % 63.4 % (40.0-76.0); PLATELET 284 x1000/uL (130-400); RED BLOOD CELL COUNT 4.34 mill/uL (4.7-6.1); RED CELL DISTRIBUTION WIDTH 13.3 % (11.6-14.6)
[2020-12-07 23:43] LABS: CHLORIDE 100 mEq/L (98-107)
[2020-12-08] MEDS ORDERED: DEXTROSE 50% WATER 50ML SYRINGE IV ONE (00:45)
[2020-12-08] MEDS ORDERED: ALBUTEROL (0.083%) 2.5MG/3ML NEB HHN NR (00:45)
[2020-12-08] MEDS ORDERED: CALCIUM CHLORIDE 1GM/10ML SYR IV NR ×2 (01:00→01:15)
[2020-12-08] MEDS ORDERED: FUROSEMIDE 100MG/10ML VIAL IV NR (01:00)
[2020-12-08] MEDS ORDERED: INSULIN REGULAR (HUMULIN R) 300UNITS/3ML VIAL IV NR (01:00)
[2020-12-08] MEDS ORDERED: SODIUM BICARBONATE 8.4% 1 MEQ/ML 50ML SYR IV NR (01:00)
[2020-12-08] MEDS ORDERED: DEXTROSE 50% WATER 50ML SYRINGE IV NR (02:30)
[2020-12-08 07:10] VITALS: BP 81/58
== END 2020-12-08 09:26 | disposition short-term general hospital (02) ==
LOC: ER 20:31
DX: R07.9 Chest pain, unspecified (principal); N17.9 Acute kidney failure, unspecified; E87.5 Hyperkalemia; I11.0 Hypertensive heart disease with heart failure; I50.9 Heart failure, unspecified; E11.9 Type 2 diabetes mellitus without complications; I25.2 Old myocardial infarction; Z79.82 Long term (current) use of aspirin; Z86.73 Personal history of transient ischemic attack (TIA), and cerebral infarction without residual deficits; Z98.890 Other specified postprocedural states; Z91.018 Allergy to other foods
CPT/HCPCS: 36415; 71045; 80053; 82962; 83880; 84484; 85025; 93005; 96375; 96376; 99285; J1815; J1940; J2270; J2405; J3490; Z7610

== ENCOUNTER 2021-02-14 06:49 | Emergency (ER) | payer OTHER ==
[~2021-02-14] VITALS: Ht 185.4 cm; Wt 83.0 kg
[2021-02-14] MEDS ORDERED: SODIUM CHLORIDE 0.9% 1,000 ML IV ONE (07:15)
[2021-02-14 08:46] LABS: BASOPHILS % 1.1 % (0.0-2.0); EOSINOPHILS % 0.3 % (0.0-5.0); HEMATOCRIT. 41.3 % (42.0-52.0); HEMOGLOBIN. 14.1 g/dL (14.0-18.0); LYMPHOCYTES % 14.4 % (20.0-50.0); MEAN CORPUSCULAR HEMOGLOBIN 35.3 pg (28.0-32.0); MEAN CORPUSCULAR VOLUME 103.5 fL (80.0-94.0); MEAN PLATELET VOLUME 6.7 fl (7.4-10.4); MONOCYTES % 6.5 % (2.0-8.0); NEUTROPHILS % 77.7 % (40.0-76.0); PLATELET 270 x1000/uL (130-400); RED BLOOD CELL COUNT 3.99 mill/uL (4.7-6.1); RED CELL DISTRIBUTION WIDTH 16.4 % (11.6-14.6)
[2021-02-14 08:56] LABS: CHLORIDE 102 mEq/L (98-107)
[2021-02-14 12:12] VITALS: BP 149/90
[2021-02-14] MEDS ORDERED: ACETAMINOPHEN 325MG TABLET PO ONE (13:00)
== END 2021-02-14 12:28 | disposition short-term general hospital (02) ==
LOC: ER 06:49
DX: R55 Syncope and collapse (principal); I11.0 Hypertensive heart disease with heart failure; I50.9 Heart failure, unspecified; I25.2 Old myocardial infarction; F17.200 Nicotine dependence, unspecified, uncomplicated; Z86.73 Personal history of transient ischemic attack (TIA), and cerebral infarction without residual deficits; Z91.018 Allergy to other foods; Z91.048 Other nonmedicinal substance allergy status; Z98.890 Other specified postprocedural states
CPT/HCPCS: 36415; 71045; 80053; 83880; 84484; 85025; 93005; 96360; 99285; J7030

== ENCOUNTER 2021-03-17 18:12 | Emergency (ER) | payer OTHER ==
[~2021-03-17] VITALS: Ht 175.3 cm; Wt 80.0 kg
[2021-03-17] MEDS ORDERED: MORPHINE SULFATE 4 MG/ML CPJ (NOT FOR IM USE) IV STA (18:28)
[2021-03-17] MEDS ORDERED: ONDANSETRON HCL 4MG/2ML INJ IV STA (18:28)
[2021-03-17] MEDS ORDERED: ASPIRIN 325MG EC TABLET PO ONE (18:30)
[2021-03-17 18:50] LABS: BASOPHILS % 1.1 % (0.0-2.0); EOSINOPHILS % 1.1 % (0.0-5.0); HEMATOCRIT. 42.7 % (42.0-52.0); HEMOGLOBIN. 14.8 g/dL (14.0-18.0); LYMPHOCYTES % 28.5 % (20.0-50.0); MEAN CORPUSCULAR VOLUME 100.7 fL (80.0-94.0); MEAN PLATELET VOLUME 7.5 fl (7.4-10.4); MONOCYTES % 9.6 % (2.0-8.0); NEUTROPHILS % 59.7 % (40.0-76.0); PLATELET 235 x1000/uL (130-400); RED BLOOD CELL COUNT 4.24 mill/uL (4.7-6.1); RED CELL DISTRIBUTION WIDTH 14.2 % (11.6-14.6)
[2021-03-17 18:57] LABS: CHLORIDE 96 mEq/L (98-107)
[2021-03-17] MEDS ORDERED: INSULIN REGULAR (HUMULIN R) 300UNITS/3ML VIAL IV NR (20:00)
[2021-03-17] MEDS ORDERED: DEXTROSE 50% WATER 50ML SYRINGE IV NR (20:00)
[2021-03-17] MEDS ORDERED: CALCIUM GLUCONATE 1,000 MG in DEXT 5% WATER 100 ML IV NR (20:30)
[2021-03-18 00:15] VITALS: BP 102/64
== END 2021-03-18 00:39 | disposition short-term general hospital (02) ==
LOC: ER 18:12 → CANBEDREQ 03-18 00:23 → ER 03-18 00:39
DX: R07.89 Other chest pain (principal); R06.00 Dyspnea, unspecified; E87.5 Hyperkalemia; E11.9 Type 2 diabetes mellitus without complications; I11.0 Hypertensive heart disease with heart failure; I50.9 Heart failure, unspecified; I25.2 Old myocardial infarction; Z90.49 Acquired absence of other specified parts of digestive tract; Z86.73 Personal history of transient ischemic attack (TIA), and cerebral infarction without residual deficits; Z91.018 Allergy to other foods
CPT/HCPCS: 36415; 71045; 74176; 80053; 83605; 83690; 83880; 84484; 85025; 93005; 96365; 96375; 99285; J0610; J1815; J2270; J2405; J7060

== ENCOUNTER 2021-05-05 15:42 | Emergency (ER) | payer OTHER, MEDICAID ==
[~2021-05-05] VITALS: Ht 188 cm; Wt 84.0 kg
[2021-05-05 18:08] LABS: BASOPHILS % 0.7 % (0.0-2.0); EOSINOPHILS % 0.2 % (0.0-5.0); HEMATOCRIT. 39.4 % (42.0-52.0); HEMOGLOBIN. 13.7 g/dL (14.0-18.0); LYMPHOCYTES % 20.6 % (20.0-50.0); MEAN CORPUSCULAR HEMOGLOBIN 34.7 pg (28.0-32.0); MEAN CORPUSCULAR VOLUME 99.5 fL (80.0-94.0); MEAN PLATELET VOLUME 6.7 fl (7.4-10.4); MONOCYTES % 8.3 % (2.0-8.0); NEUTROPHILS % 70.2 % (40.0-76.0); PLATELET 285 x1000/uL (130-400); RED BLOOD CELL COUNT 3.96 mill/uL (4.7-6.1); RED CELL DISTRIBUTION WIDTH 15.5 % (11.6-14.6)
[2021-05-05 18:15] LABS: CHLORIDE 99 mEq/L (98-107)
[2021-05-05 19:47] VITALS: BP 133/73
== END 2021-05-05 20:13 | disposition short-term general hospital (02) ==
LOC: ER 15:42
DX: K59.00 Constipation, unspecified (principal); I11.0 Hypertensive heart disease with heart failure; I50.9 Heart failure, unspecified; E11.9 Type 2 diabetes mellitus without complications; Z86.73 Personal history of transient ischemic attack (TIA), and cerebral infarction without residual deficits; Z90.49 Acquired absence of other specified parts of digestive tract; Z79.899 Other long term (current) drug therapy
CPT/HCPCS: 36415; 71045; 80053; 82962; 83880; 84484; 85025; 93005; 99285

== ENCOUNTER 2021-06-16 03:39 | Inpatient (IN) | payer MEDICAID, OTHER ==
[~2021-06-16] VITALS: Ht 185.4 cm; Wt 79.4 kg
[2021-06-16] MEDS ORDERED: NITROGLYCERIN 0.4MG TABLET SL SL ONE (04:15)
[2021-06-16] MEDS ORDERED: HYDRALAZINE 20MG/ML VIAL IV ONE (04:15)
[2021-06-16] MEDS ORDERED: MORPHINE SULFATE 4 MG/ML CPJ (NOT FOR IM USE) IV ONE (04:15)
[2021-06-16 04:21] LABS: BASOPHILS % 0.9 % (0.0-2.0); EOSINOPHILS % 0.3 % (0.0-5.0); HEMATOCRIT. 33.7 % (42.0-52.0); HEMOGLOBIN. 11.7 g/dL (14.0-18.0); LYMPHOCYTES % 19.7 % (20.0-50.0); MEAN CORPUSCULAR HEMOGLOBIN 35.1 pg (28.0-32.0); MEAN CORPUSCULAR VOLUME 101.4 fL (80.0-94.0); MEAN PLATELET VOLUME 6.6 fl (7.4-10.4); MONOCYTES % 6.8 % (2.0-8.0); NEUTROPHILS % 72.3 % (40.0-76.0); PLATELET 348 x1000/uL (130-400); RED BLOOD CELL COUNT 3.33 mill/uL (4.7-6.1); RED CELL DISTRIBUTION WIDTH 16.5 % (11.6-14.6)
[2021-06-16 04:28] LABS: CHLORIDE 102 mEq/L (98-107)
[2021-06-16] MEDS ORDERED: HEPARIN 5000 UNITS/ML VIAL IV PRN ×4 (06:00→07:35)
[2021-06-16] MEDS ORDERED: HEPARIN 5000 UNITS/ML VIAL IV SCH (06:00)
[2021-06-16] MEDS ORDERED: HEPARIN 25,000 UNITS PREMIX 250 ML IV PRN ×2 (06:00→08:30)
[2021-06-16] MEDS ORDERED: HEPARIN 5000 UNITS/ML VIAL IV NR (08:00)
[2021-06-16] MEDS ORDERED: ASPIRIN 81MG EC TABLET PO SCH (10:45)
[2021-06-16 11:00] VITALS: BP 155/88
[2021-06-16] MEDS ORDERED: MORPHINE SULFATE 2 MG/ML CPJ (NOT FOR IM USE) IV PRN (11:30)
[2021-06-16] MEDS ORDERED: DEXTROSE 50% WATER 50ML SYRINGE IV PRN ×3 (11:30→11:45)
[2021-06-16] MEDS ORDERED: NALOXONE HCL 0.4MG/ML VIAL IV PRN (11:45)
[2021-06-16 12:00] VITALS: BP 147/80
[2021-06-16] MEDS ORDERED: BLOOD SUGAR DIAGNOSTIC STRIP TEST SCH (12:10)
[2021-06-16] MEDS: BLOOD SUGAR DIAGNOSTIC STRIP TEST SCH ×3 (12:35→21:00)
[2021-06-16] MEDS: INSULIN LISPRO 100 UNITS/ML SUBCUT SCH ×3 (12:35→21:00)
[2021-06-16] MEDS: ENOXAPARIN 40MG/0.4ML SYR SUBCUT SCH (13:35)
[2021-06-16 16:00] VITALS: BP 133/80
[2021-06-16 16:01] LABS: CREATINE KINASE 83 IU/L (39-308)
[2021-06-16 16:02] LABS: CREATINE KINASE MB FRACTION 2.1 ng/mL (0.5-3.6)
[2021-06-16] MEDS: CLOPIDOGREL 75MG TABLET PO SCH (17:13)
[2021-06-16] MEDS: FOLIC ACID 1MG TABLET PO SCH (17:13)
[2021-06-16] MEDS: NICOTINE 14MG PATCH TD SCH (17:13)
[2021-06-16] MEDS: FUROSEMIDE 40MG TABLET PO SCH (17:13)
[2021-06-16] MEDS: AMLODIPINE 5MG TABLET PO SCH (17:14)
[2021-06-16] MEDS: THIAMINE HCL 100MG TABLET PO SCH (17:14)
[2021-06-16 20:00] VITALS: BP 139/90
[2021-06-16] MEDS ORDERED: ZOLPIDEM TARTRATE 5MG TABLET PO PRN (20:30)
[2021-06-16] MEDS: POTASSIUM CHLORIDE 10MEQ TABLET SR PO SCH (20:59)
[2021-06-16] MEDS: CARVEDILOL 6.25 MG TABLET PO SCH (20:59)
[2021-06-16] MEDS: PANTOPRAZOLE SODIUM 40 MG/VIAL IV SCH (21:00)
[2021-06-16] MEDS ORDERED: ATORVASTATIN CALCIUM 20MG TABLET PO SCH (21:00)
[2021-06-16 23:20] LABS: CREATINE KINASE 85 IU/L (39-308)
[2021-06-16 23:21] LABS: CREATINE KINASE MB FRACTION 2.7 ng/mL (0.5-3.6)
[2021-06-17] VITALS: BP 136/87
[2021-06-17 04:00] VITALS: BP 124/90
[2021-06-17] MEDS: BLOOD SUGAR DIAGNOSTIC STRIP TEST SCH ×3 (06:25→18:09)
[2021-06-17] MEDS: INSULIN LISPRO 100 UNITS/ML SUBCUT SCH ×3 (06:47→17:40)
[2021-06-17 08:00] VITALS: BP 133/88
[2021-06-17] MEDS ORDERED: ASPIRIN 81MG TABLET PO SCH (09:00)
[2021-06-17] MEDS: PANTOPRAZOLE SODIUM 40 MG/VIAL IV SCH (09:12)
[2021-06-17] MEDS: NICOTINE 14MG PATCH TD SCH (09:12)
[2021-06-17] MEDS: ENOXAPARIN 40MG/0.4ML SYR SUBCUT SCH (09:12)
[2021-06-17] MEDS: POTASSIUM CHLORIDE 10MEQ TABLET SR PO SCH (09:13)
[2021-06-17] MEDS: CARVEDILOL 6.25 MG TABLET PO SCH (09:18)
[2021-06-17] MEDS: THIAMINE HCL 100MG TABLET PO SCH (09:18)
[2021-06-17] MEDS: AMLODIPINE 5MG TABLET PO SCH (09:18)
[2021-06-17] MEDS: CLOPIDOGREL 75MG TABLET PO SCH (09:18)
[2021-06-17] MEDS: FUROSEMIDE 40MG TABLET PO SCH (09:18)
[2021-06-17] MEDS: FOLIC ACID 1MG TABLET PO SCH (09:20)
[2021-06-17 12:00] VITALS: BP 137/85
[2021-06-17 13:09] VITALS: BP_SYST 137
[2021-06-17 16:00] VITALS: BP 126/84
[2021-06-18] MEDS ORDERED: FAMOTIDINE 20MG/2ML VIAL IV SCH (09:00)
== END 2021-06-17 18:16 | disposition home or self-care (01) | DRG 203 ==
LOC: ER 04:04 → 8WST 04:40 → ENRESERV 09:20
PROVIDERS: ADMIT Internal Medicine; ATTEND Internal Medicine
DX: M94.0 Chondrocostal junction syndrome [Tietze] (principal); I13.0 Hypertensive heart and chronic kidney disease with heart failure and stage 1 through stage 4 chronic kidney disease, or unspecified chronic kidney disease; I42.9 Cardiomyopathy, unspecified; E11.22 Type 2 diabetes mellitus with diabetic chronic kidney disease; I50.22 Chronic systolic (congestive) heart failure; I25.10 Atherosclerotic heart disease of native coronary artery without angina pectoris; Z82.49 Family history of ischemic heart disease and other diseases of the circulatory system; Z86.73 Personal history of transient ischemic attack (TIA), and cerebral infarction without residual deficits; E78.5 Hyperlipidemia, unspecified; Z90.49 Acquired absence of other specified parts of digestive tract; Z98.61 Coronary angioplasty status; I45.10 Unspecified right bundle-branch block; N18.9 Chronic kidney disease, unspecified; F17.210 Nicotine dependence, cigarettes, uncomplicated; Z91.018 Allergy to other foods; Z88.8 Allergy status to other drugs, medicaments and biological substances
CPT/HCPCS: 36415; 71045; 80053; 82550; 82553; 82962; 83036; 83880; 84484; 85025; 93005; 93306; 99285; C9113; J0360; J1644; J1650; J2270

== ENCOUNTER 2021-07-03 17:35 | Emergency (ER) | payer OTHER ==
[~2021-07-03] VITALS: Ht 172.7 cm; Wt 93.0 kg
[~2021-07-03 17:35] MED LIST changes: -nitro
[2021-07-03] MEDS ORDERED: ONDANSETRON HCL 4MG/2ML INJ IV STA (20:58)
[2021-07-03] MEDS ORDERED: SODIUM CHLORIDE 0.9% 500 ML IV ONE (21:00)
[2021-07-03 21:57] LABS: BASOPHILS % 0.7 % (0.0-2.0); EOSINOPHILS % 0.7 % (0.0-5.0); LYMPHOCYTES % 16.9 % (20.0-50.0); MEAN CORPUSCULAR HEMOGLOBIN 34.9 pg (28.0-32.0); MEAN CORPUSCULAR VOLUME 101.7 fL (80.0-94.0); MONOCYTES % 6.8 % (2.0-8.0); NEUTROPHILS % 74.9 % (40.0-76.0); PLATELET 272 x1000/uL (130-400); RED BLOOD CELL COUNT 3.44 mill/uL (4.7-6.1); RED CELL DISTRIBUTION WIDTH 14.5 % (11.6-14.6)
[2021-07-03 22:03] LABS: CHLORIDE 102 mEq/L (98-107)
[2021-07-03 23:08] VITALS: BP 121/87
[2021-07-03] MEDS ORDERED: ACETAMINOPHEN 325MG TABLET PO ONE (23:30)
== END 2021-07-04 00:21 | disposition short-term general hospital (02) ==
LOC: ER 17:35
DX: R55 Syncope and collapse (principal); M94.0 Chondrocostal junction syndrome [Tietze]; R07.9 Chest pain, unspecified; I13.0 Hypertensive heart and chronic kidney disease with heart failure and stage 1 through stage 4 chronic kidney disease, or unspecified chronic kidney disease; I50.22 Chronic systolic (congestive) heart failure; N18.9 Chronic kidney disease, unspecified; E78.5 Hyperlipidemia, unspecified; I25.2 Old myocardial infarction; I25.10 Atherosclerotic heart disease of native coronary artery without angina pectoris; Z79.82 Long term (current) use of aspirin; Z86.73 Personal history of transient ischemic attack (TIA), and cerebral infarction without residual deficits; Z91.018 Allergy to other foods; Z91.048 Other nonmedicinal substance allergy status; Z98.890 Other specified postprocedural states
CPT/HCPCS: 36415; 80053; 83880; 84484; 85025; 93005; 96361; 96374; 99285; J2405; J7030

== ENCOUNTER 2021-09-09 01:49 | Emergency (ER) | payer OTHER ==
[~2021-09-09] VITALS: Ht 182.9 cm; Wt 82.0 kg
[2021-09-09] MEDS ORDERED: METOCLOPRAMIDE HCL 10MG/2ML VIAL IV STA (02:10)
[2021-09-09] MEDS ORDERED: FAMOTIDINE 20MG/2ML VIAL IV STA (02:10)
[2021-09-09] MEDS ORDERED: SODIUM CHLORIDE 0.9% 1,000 ML IV ONE (02:15)
[2021-09-09 02:55] LABS: BASOPHILS % 1.2 % (0.0-2.0); EOSINOPHILS % 0.2 % (0.0-5.0); HEMATOCRIT. 40.3 % (42.0-52.0); HEMOGLOBIN. 13.5 g/dL (14.0-18.0); LYMPHOCYTES % 16.4 % (20.0-50.0); MEAN CORPUSCULAR HEMOGLOBIN 34.7 pg (28.0-32.0); MEAN CORPUSCULAR VOLUME 103.4 fL (80.0-94.0); MEAN PLATELET VOLUME 7.2 fl (7.4-10.4); MONOCYTES % 7.6 % (2.0-8.0); NEUTROPHILS % 74.6 % (40.0-76.0); PLATELET 251 x1000/uL (130-400); RED CELL DISTRIBUTION WIDTH 14.8 % (11.6-14.6)
[2021-09-09 03:24] LABS: CHLORIDE 99 mEq/L (98-107)
[2021-09-09] MEDS ORDERED: ONDA4TAB5 MT (05:35)
[2021-09-09 06:11] VITALS: BP 137/88
== END 2021-09-09 06:13 | disposition home or self-care (01) ==
LOC: ER 01:49
DX: R10.84 Generalized abdominal pain (principal); R11.2 Nausea with vomiting, unspecified; I11.0 Hypertensive heart disease with heart failure; I50.9 Heart failure, unspecified; Z90.49 Acquired absence of other specified parts of digestive tract
CPT/HCPCS: 36415; 71045; 74176; 80053; 83605; 83690; 85025; 93005; 96361; 96374; 96375; 99285; J2765; J3490; J7030

== ENCOUNTER 2021-10-23 02:18 | Emergency (ER) | payer OTHER ==
[~2021-10-23] VITALS: Ht 188 cm; Wt 93.0 kg
[~2021-10-23 02:18] MED LIST changes: +ONDA4TAB5 MT
[2021-10-23] MEDS ORDERED: LIDOCAINE HCL/EPINEPHRINE 1%-EPI 1:100,000 20 ML VIAL INFIL ONE (02:30)
[2021-10-23] MEDS ORDERED: BACITRACIN ZINC OINT UDPKT TOP ONE (02:30)
[2021-10-23] MEDS ORDERED: LIDOCAINE HCL/EPINEPHRINE 1%-EPI 1:100,000 10 ML VIAL INFIL SCH (02:45)
[2021-10-23 03:23] LABS: BASOPHILS % 0.3 % (0.0-2.0); EOSINOPHILS % 1.1 % (0.0-5.0); HEMATOCRIT. 37.4 % (42.0-52.0); HEMOGLOBIN. 12.9 g/dL (14.0-18.0); LYMPHOCYTES % 31.9 % (20.0-50.0); MEAN CORPUSCULAR HEMOGLOBIN 35.1 pg (28.0-32.0); MEAN PLATELET VOLUME 7.3 fl (7.4-10.4); MONOCYTES % 5.8 % (2.0-8.0); NEUTROPHILS % 60.9 % (40.0-76.0); PLATELET 221 x1000/uL (130-400); RED BLOOD CELL COUNT 3.67 mill/uL (4.7-6.1)
[2021-10-23 05:05] VITALS: BP 95/66
== END 2021-10-23 05:41 | disposition home or self-care (01) ==
LOC: ER 02:18
DX: S01.81XA Laceration without foreign body of other part of head, initial encounter (principal); R04.0 Epistaxis; R94.31 Abnormal electrocardiogram [ECG] [EKG]; X58.XXXA Exposure to other specified factors, initial encounter; Y93.89 Activity, other specified; Y92.9 Unspecified place or not applicable; E11.9 Type 2 diabetes mellitus without complications; I11.0 Hypertensive heart disease with heart failure; I50.9 Heart failure, unspecified; Z79.82 Long term (current) use of aspirin; Z91.018 Allergy to other foods; Z98.890 Other specified postprocedural states
CPT/HCPCS: 12011; 36415; 80048; 85025; 86850; 86900; 86901; 93005; 99284; J3490; Z7610

== ENCOUNTER 2021-12-10 16:21 | Emergency (ER) | payer OTHER ==
[~2021-12-10] VITALS: Ht 177.8 cm; Wt 91.0 kg
[2021-12-10] MEDS ORDERED: ONDANSETRON HCL 4MG/2ML INJ IV STA ×2 (16:51→20:05)
[2021-12-10] MEDS ORDERED: MORPHINE SULFATE 4 MG/ML CPJ (NOT FOR IM USE) IV STA ×2 (16:51→20:05)
[2021-12-10] MEDS ORDERED: SODIUM CHLORIDE 0.9% 1,000 ML IV ONE (17:00)
[2021-12-10 17:27] LABS: CHLORIDE 99 mEq/L (98-107)
[2021-12-10 17:31] LABS: ETHANOL BLOOD 115 mg/dL
[2021-12-10 17:32] LABS: BASOPHILS % 0.6 % (0.0-2.0); EOSINOPHILS % 0.2 % (0.0-5.0); HEMATOCRIT. 41.9 % (42.0-52.0); HEMOGLOBIN. 14.1 g/dL (14.0-18.0); LYMPHOCYTES % 10.1 % (20.0-50.0); MEAN CORPUSCULAR HEMOGLOBIN 35.2 pg (28.0-32.0); MEAN CORPUSCULAR VOLUME 104.5 fL (80.0-94.0); MEAN PLATELET VOLUME 7.4 fl (7.4-10.4); MONOCYTES % 5.5 % (2.0-8.0); NEUTROPHILS % 83.6 % (40.0-76.0); PLATELET 219 x1000/uL (130-400); RED BLOOD CELL COUNT 4.01 mill/uL (4.7-6.1); RED CELL DISTRIBUTION WIDTH 15.6 % (11.6-14.6)
[2021-12-10 20:25] VITALS: BP 171/115
== END 2021-12-10 21:29 | disposition short-term general hospital (02) ==
LOC: ER 16:21
DX: K85.90 Acute pancreatitis without necrosis or infection, unspecified (principal); R07.89 Other chest pain; E11.9 Type 2 diabetes mellitus without complications; I11.0 Hypertensive heart disease with heart failure; I50.9 Heart failure, unspecified; Z20.822 Contact with and (suspected) exposure to COVID-19; Z91.018 Allergy to other foods; Z79.899 Other long term (current) drug therapy; Z79.82 Long term (current) use of aspirin; Z86.73 Personal history of transient ischemic attack (TIA), and cerebral infarction without residual deficits; Z90.49 Acquired absence of other specified parts of digestive tract
CPT/HCPCS: 36415; 71045; 74176; 80053; 80320; 83690; 83880; 84484; 85025; 87426; 93005; 96361; 96374; 96375; 96376; 99285; J2270; J2405; J7030; G0480